=== PATIENT | female | born 1965 | race Caucasian/White ===

== ENCOUNTER → 2020-02-27 | Outpatient (CLI) | payer OTHER | LOC: KOH-I 10:15 | DX: M25.512 Pain in left shoulder (principal); M19.012 Primary osteoarthritis, left shoulder; M25.712 Osteophyte, left shoulder; M75.102 Unspecified rotator cuff tear or rupture of left shoulder, not specified as traumatic | CPT/HCPCS: 73221 ==

== ENCOUNTER 2020-07-02 17:43 | Emergency (ER) | payer OTHER | END 2020-07-02 19:33 | disposition home or self-care (01) | LOC: ER1 17:43 | DX: M25.512 Pain in left shoulder (principal); E11.9 Type 2 diabetes mellitus without complications; M19.90 Unspecified osteoarthritis, unspecified site; Z90.49 Acquired absence of other specified parts of digestive tract | CPT/HCPCS: 99283 ==

== ENCOUNTER → 2021-04-21 | Outpatient (CLI) | payer OTHER | LOC: KOH-I 14:08 | DX: M51.36 Other intervertebral disc degeneration, lumbar region (principal); M48.061 Spinal stenosis, lumbar region without neurogenic claudication; M47.816 Spondylosis without myelopathy or radiculopathy, lumbar region; M47.817 Spondylosis without myelopathy or radiculopathy, lumbosacral region; M48.07 Spinal stenosis, lumbosacral region; M51.26 Other intervertebral disc displacement, lumbar region; M51.27 Other intervertebral disc displacement, lumbosacral region | CPT/HCPCS: 72148 ==

== ENCOUNTER → 2021-08-29 | Outpatient (CLI) | payer OTHER | LOC: KOH-I 16:34 | DX: M54.2 Cervicalgia (principal); M47.812 Spondylosis without myelopathy or radiculopathy, cervical region | CPT/HCPCS: 72040 ==

== ENCOUNTER → 2021-09-23 | Outpatient (CLI) | payer OTHER | LOC: MAMO 08-06 08:00 | DX: Z12.31 Encounter for screening mammogram for malignant neoplasm of breast (principal) | CPT/HCPCS: 77063; 77067 ==

== ENCOUNTER → 2021-10-22 | Outpatient (CLI) | payer OTHER | LOC: MAMO 10:00 | DX: R92.8 Other abnormal and inconclusive findings on diagnostic imaging of breast (principal) | CPT/HCPCS: 76642-RT; 77065; G0279 ==